=== PATIENT | female | born 1970 | race Caucasian/White ===

== ENCOUNTER 2020-05-31 07:47 | Day surgery (SDC) | payer BC ==
[2020-05-30 09:50] VITALS: BMI 39.4
[~2020-05-31 07:47] MED LIST: LACTATED RINGERS 1,000 ML IV SCH; LIDOCAINE 1% (10MG/ML) FOR IV START INTRADERMA PRN
[2020-05-31 08:05] VITALS: TEMP 97.6
[2020-05-31] MEDS ORDERED: LIDOCAINE 1% INJ 10MG/ML (20 ML MDV) ONE (08:45)
[2020-05-31] MEDS ORDERED: PROPOFOL 10 MG/ML 20 ML VIAL IV ONE (08:45)
--- NOTE | 2020-05-31 09:21 | P.PCN ---
Date of Procedure: 05/31/20 Description of Procedure: BRIEF HISTORY: Patient is a 49-year-old female with a medical history significant for reflux presenting for outpatient EGD for evaluation of GERD. Patient reports a long- standing history of GERD treated with omeprazole therapy. Symptoms controlled on PPI therapy but she will have breakthrough symptoms if she misses a dose. PROCEDURE PERFORMED: Esophagogastroduodenoscopy with biopsy. PREOPERATIVE DIAGNOSIS: GERD. ESTIMATED BLOOD LOSS: Minimal. IV sedation per anesthesia. PROCEDURE: After informed consent was obtained, the patient was brought into the endoscopy unit. IV sedation was administered by Anesthesia under continuous monitoring. I nitially the Olympus GIF-190 video endoscope was inserted into the mouth. Esophagus intubated without any difficulty. It was gradually advanced into the stomach and duodenum and carefully examined. The bulb and the second part of the duodenum appeared normal, with biopsies taken. The scope at this time was withdrawn to the stomach, adequately insufflated with air, and upon careful examination, mucosa of the antrum, body, cardia and the fundus appeared normal except for some mild scattered punctate erythema suggestive of mild gastritis with biopsies taken. A few diminutive polyps noted in the body of the stomach likely representing fundic gland polyps biopsies. The scope was then withdrawn into the esophagus. The GE junction was located at 39 cm from the incisors, with biopsies taken. The esophagus appeared normal. There were no erosions or ulcerations seen and the patient tolerated the procedure well. IMPRESSION: 1. Mild gastritis antrum and body, biopsied. 2. Diminutive gastric polyps, biopsied. 3. Biopsies of the duodenum and GE junction. RECOMMENDATIONS: The findings of this examination were discussed with the patient. Okay to resume diet. Okay to resume medications. Await pathology from biopsies. Would continue PPI therapy at this time. GERD lifestyle modifications discussed.
[2020-05-31 09:43] VITALS: BP 120/83; PULSE 76; RESP 16
== END 2020-05-31 10:00 | disposition home or self-care (01) ==
LOC: ORWHC2ENDO 07:47
PROVIDERS: ATTEND Internal Medicine
DX: K21.0 Gastro-esophageal reflux disease with esophagitis (principal); K29.50 Unspecified chronic gastritis without bleeding; K31.7 Polyp of stomach and duodenum; I10 Essential (primary) hypertension; E78.5 Hyperlipidemia, unspecified; G47.33 Obstructive sleep apnea (adult) (pediatric); Z79.899 Other long term (current) drug therapy; Z79.82 Long term (current) use of aspirin; Z82.49 Family history of ischemic heart disease and other diseases of the circulatory system
CPT/HCPCS: 81025; 88305; 43239; J2001; J2704

== ENCOUNTER → 2020-06-12 | Outpatient (CLI) | payer BC ==
--- NOTE | 2020-06-14 13:13 | MM ---
Reason for exam: screening (asymptomatic). Last mammogram was performed 3 years and 11 months ago. History: Taking hormonal contraceptives for 20 years. Physical Findings: A clinical breast exam by your physician is recommended on an annual basis and results should be correlated with mammographic findings. MG Screening Mammo w CAD Bilateral CC and MLO view(s) were taken. Prior study comparison: July 08, 2016, mammogram, performed at [facility]. July 05, 2015, mammogram, performed at [facility]. There are scattered fibroglandular densities. No significant changes when compared with prior studies. ASSESSMENT: Benign, BI-RAD 2 RECOMMENDATION: Routine screening mammogram of both breasts in 1 year.
== END | disposition home or self-care (01) ==
LOC: RADMAMWWP 15:56
PROVIDERS: ATTEND Family Medicine
DX: Z12.31 Encounter for screening mammogram for malignant neoplasm of breast (principal)
CPT/HCPCS: 77067

== ENCOUNTER → 2021-11-15 | Outpatient (CLI) | payer OTHER ==
--- NOTE | 2021-11-18 13:24 | MM ---
Reason for exam: screening (asymptomatic). Last mammogram was performed 1 year and 5 months ago. History: Taking hormonal contraceptives for 20 years beginning at age 18. Physical Findings: A clinical breast exam by your physician is recommended on an annual basis and results should be correlated with mammographic findings. MG 3D Screening Mammo W/Cad Bilateral CC and MLO view(s) were taken. Prior study comparison: June 12, 2020, bilateral MG screening mammo w CAD. July 08, 2016, mammogram, performed at [facility]. There are scattered fibroglandular densities. There are benign appearing round calcifications bilaterally, greater in the left breast. There is no discrete abnormality. ASSESSMENT: Benign, BI-RAD 2 RECOMMENDATION: Routine screening mammogram of both breasts in 1 year.
== END | disposition home or self-care (01) ==
LOC: RADMAMWWP 16:52
PROVIDERS: ATTEND Nurse Practitioner Family
DX: Z12.31 Encounter for screening mammogram for malignant neoplasm of breast (principal)
CPT/HCPCS: 77063; 77067

== ENCOUNTER → 2022-05-30 | Outpatient (CLI) | payer OTHER ==
--- NOTE | 2022-05-30 13:00 | XR ---
EXAMINATION TYPE: XR ankle complete bilateral DATE OF EXAM: 05/30/2022 COMPARISON: None HISTORY: Pain TECHNIQUE: Bilateral ankles 3 views each FINDINGS: Right ankle: Ankle mortise appears intact. Soft tissues are normal. Plantar ankylosing calcaneal silvia l spurs are present. Left ankle: Ankle mortise is intact. Soft tissues are normal. Plantar and Achilles tendon calcaneal h eel spurs are present. IMPRESSION: 1. No acute osseous abnormalities bilateral ankles. 2. Bilateral calcaneal heel spurs.
== END | disposition home or self-care (01) ==
LOC: RADXRMAIN 09:26
PROVIDERS: ATTEND Registered Nurse
DX: M77.31 Calcaneal spur, right foot (principal); M77.32 Calcaneal spur, left foot

== ENCOUNTER → 2023-07-16 | Outpatient (CLI) | payer OTHER ==
--- NOTE | 2023-07-17 10:24 | MM ---
Reason for Exam: Screening (asymptomatic). Last mammogram was performed 1 year(s) and 8 month(s) ago. Patient History: Menarche at age 12. First Full-Term at age 25. Postmenopausal. Currently using Hormonal Contraceptives, beginning at age 18 for 20 years. Mother had breast cancer, age 81. Risk Values: Lindy 5 year model risk: 2.1%. NCI Lifetime model risk: 16.3%. Prior Study Comparison: 07/08/2016 Screening Mammogram, [facility]. 06/12/2020 Bilateral Screening Mammogram, [facility]. 11/15/2021 Bilateral Screening Mammogram, [facility]. Tissue Density: There are scattered fibroglandular densities. Findings: Analyzed By CAD. There is no suspicious group of microcalcifications or new suspicious mass in either breast. Overall Assessment: Negative, BI-RAD 1 Management: Screening Mammogram of both breasts in 1 year. . Patient should continue monthly self-breast exams. A clinical breast exam by your physician is recommended on an annual basis. This exam should not preclude additional follow-up of suspicious palpable abnormalities. Note on Lindy scores and lifetime risk: 1. A Lindy score greater than 3% is considered moderate risk. If this is the case, consider specialist referral to assess eligibility for a risk reducing agent. 2. If overall lifetime risk for the development of breast cancer is 20% or higher, the patient may qualify for future screening with alternating mammogram and breast MRI. Electronically signed and approved by: Aaron Barrett M.D. Radiologis
== END | disposition home or self-care (01) ==
LOC: LABWHC1 09:02
PROVIDERS: ATTEND Family Medicine
DX: Z00.00 Encounter for general adult medical examination without abnormal findings (principal); Z12.31 Encounter for screening mammogram for malignant neoplasm of breast; Z78.0 Asymptomatic menopausal state; Z80.3 Family history of malignant neoplasm of breast
CPT/HCPCS: 77063; 77067

== ENCOUNTER → 2024-09-08 | Outpatient (CLI) | payer BC ==
[2024-09-08 15:50] VITALS: BP 132/88; PULSE 109; RESP 20; TEMP 98.5
--- NOTE | 2024-09-08 16:45 | P.SLEEP ---
History of Present Illness DATE: 09/08/2024 CONSULTATION/NEW PATIENT EVALUATION HISTORY OF PRESENT ILLNESS/SLEEP-WAKE EVALUATION: 53-year-old lady had been evaluated in the sleep center for obstructive sleep apnea hypopnea syndrome. Patient has been diagnosed with obstructive sleep apnea in 2019 in another institution. She was started on treatment with CPAP and continue to use CPAP equipment every night for the whole night. I checked her CPAP unit. CPAP pressure is 14 cm of water. Usage is 100% of nights, average 9.3 hours per night, which demonstrated great compliance. Leak is 13 L/min, which is acceptable. Apnea hypopnea index is 3.3 which is in normal range SLEEP SCHEDULE: Usually sleep schedule from 10 PM to 6:30 AM on weekdays and f rom 1011 PM to 810 AM on weekend. FALLING ASLEEP: No problems with falling asleep. DURING SLEEP: No snoring with CPAP. Patient may wake up from sleep several times with nocturia. No history of hypnogogical hallucinations, sleep paralysis, or cataplexy. DURING THE DAY/WAKE STATE: Patient may feel some sleepiness in the morning. [place] sleepiness scale is increased to 11. Sometimes takes nap on weekend. PAST MEDICAL HISTORY: Hypertension, hyperlipidemia, acid reflux, anxiety, depression. PAST SURGICAL HISTORY: Upper endoscopy, results normal according to patient. MEDICATIONS: Please see below. SOCIAL HISTORY: Please see below. FAMILY HISTORY: Heart problems, sleep apnea, cancer, anemia, thyroid problems. REVIEW OF SYSTEMS: No snoring on CPAP. No fevers. No double vision. No recent chest pain. No shortness of breath. No abdominal pain. No bleeding episodes. No blood in urine. No seizure episodes. PHYSICAL EXAMINATION: GENERAL: A pleasant patient without any distress. VITAL SIGNS: Please see below, weight 268.8 pounds, BMI 46.0. HEENT: PERRLA, EOMI. Evaluation of oropharynx showed tongue protrudes midline, low position of soft palate Mallampati 4. NECK: Supple. No JVD. Thyroid is not palpable. 17 inches in circumference. LUNGS: Clear to percussion and to auscultation. Good air exchange. No wheezing or rhonchi. HEART: S1, S2 regular. No murmurs, gallops or rubs. ABDOMEN: Soft and nontender. Bowel sounds are present. No organomegaly appreciated. Obese. EXTREMITIES: No clubbing or cyanosis. ACOUSTIC ENGINEER: Awake, alert, and oriented x3. Cranial nerves 2 to 7 intact. There is no fasciculation or atrophy noted. No focal deficits observed. ASSESSMENT: 1. Obstructive sleep apnea hypopnea syndrome for 4 years. Patient continued to use CPAP equipment every night for the whole night. Normal apnea hypopnea index reading from CPAP unit. Extremely low position of soft palate Mallampati 4, wide neck 17 inches in circumference. 2. Obesity, BMI 46.0. 3. Hypertension. 4. Hyperlipidemia. 5. Acid reflux. 6 . History of anxiety. 7. History of depression. PLAN: 1. Patient will continue to use CPAP equipment every night for the whole night. 2. Prescription for all necessary CPAP supplies including Simplus fullface mask small size, filters, heated tube. 3. Preferable position during sleep on the side. 4. No driving if patient feels any sleepiness. Patient is aware of civil and criminal liability for unsafe driving. 5. Sleep hygiene with regular sleep time for at least 7.5-8 hours. 6. Watching and losing weight. 7. Will get results of previous sleep studies. 8. Follow-up visit in 6-8 months or earlier if patient has any problems. Thank you very much for referring this patient for consultation. Sincerely, Abhilash Schaffer MD, PhD, FAASM. Diplomat of [place] [employer], Sleep Medicine Board by [place] [employer] [place] [employer] [facility] [place] cc: Sameer Garg MD, Sandee OvalleP Past Medical History Past Medical History: GERD/Reflux, Hyperlipidemia, Hypertension, Sleep A pnea/CPAP/BIPAP Additional Past Medical History / Comment(s): Eczema hands Depression and anxiety, History of Any Multi-Drug Resistant Organisms: None Reported Past Surgical History: No Surgical Hx Reported Additional Past Surgical History / Comment(s): Scope for stomach Additional Past Anesthesia/Blood Transfusion Reaction / Comment(s): Has never had anesthesia. Past Psychological History: Anxiety, Depression Smoking Status: Never smoker Past Alcohol Use History: Rare Past Drug Use History: None Reported - Past Family History Father Family Medical History: Coronary Artery Disease (CAD), Diabetes Mellitus, Hyperlipidemia, Hypertension Additional Family Medical History / Comment(s): Passed at age 62 - [place], angina, heart problems, snoring, anxiety/depression. Mother Family Medical History: Cancer, Thyroid Disorder Additional Family Medical History / Comment(s): Arthritis, sleep apnea, snoring, breast cancer, anemia, mental illness (anixiety & depression) Medications and Allergies Home Medications Medication Instructions Recorded Confirmed Type Aspirin 81 mg PO HS 05/30/20 05/30/20 History Atorvastatin [Lipitor] 40 mg PO HS 05/30/20 05/30/20 History Cholecalciferol [Vitamin D3] 400 unit PO HS 05/30/20 05/30/20 History Citalopram Hydrobromide 10 mg PO DAILY 05/30/20 05/30/20 History [Citalopram HBr] Fenofibrate 145 mg PO HS 05/30/20 09/08/24 History Multivitamins, Thera [Multivitamin 1 tab PO HS 05/30/20 09/08/24 History (formulary)] [place]-3 Fatty Acids/Fish Oil [Fish 1 each PO HS 05/30/20 09/08/24 History Oil 1,000 mg Softgel] Omeprazole [PriLOSEC] 20 mg PO AC-BRKFST 05/30/20 09/08/24 History Turmeric Root Extract [Turmeric] 2,000 mg PO HS 05/30/20 05/30/20 History lisinopriL [Zestril] 10 mg PO DAILY 05/30/20 09/08/24 History norgestimate-ethinyl estradioL 1 each PO HS 05/30/20 05/30/20 History [Tri-Sprintec Tablet] Calcium Carbonate [Calcium] 1,000 mg PO DIRECTED 09/08/24 09/08/24 History Escitalopram [Lexapro] 20 mg PO DAILY 09/08/24 09/08/24 History Allergies Allergy/AdvReac Type Severity Reaction Status Date / Time No Known Allergies Allergy Verified 05/31/20 07:57 Physical Exam Vitals: Vital Signs Temp Pulse Resp BP Pulse Ox 09/08/24 15:46 98.5 F 109 H 20 132/88 97 Intake and Output 09/08/24 09/08/24 09/08/24 06:59 14:59 22:59 Other: Weight 121.79 kg Sleep Note - Sleep Data ESS Total: 11 - Sleep Note Sleep Note: Temperature: 98.5 F Pulse Rate: 109 Respiratory Rate: 20 Blood Pressure: 132/88 SpO2: 97 Height: 5 ft 4 in Weight: 121.79 kg BMI: Neck Circumference: 17
== END ==
LOC: 3 N SLEEP 15:19
PROVIDERS: ATTEND Internal Medicine
DX: G47.33 Obstructive sleep apnea (adult) (pediatric) (principal); E66.9 Obesity, unspecified; I10 Essential (primary) hypertension; E78.5 Hyperlipidemia, unspecified; K21.9 Gastro-esophageal reflux disease without esophagitis; F41.9 Anxiety disorder, unspecified; F32.A Depression, unspecified; Z99.89 Dependence on other enabling machines and devices; Z68.42 Body mass index [BMI] 45.0-49.9, adult; Z79.899 Other long term (current) drug therapy
CPT/HCPCS: 99211